=== PATIENT | male | born 1970 | race Caucasian/White ===

== ENCOUNTER 2017-02-25 11:06 | Emergency (ER) | payer SELFPAY ==
[~2017-02-25] VITALS: Ht 167.6 cm; Wt 82.5 kg
[2017-02-25 13:33] VITALS: BP 140/64
== END 2017-02-25 13:33 | disposition home or self-care (01) ==
LOC: ED 11:06
DX: M54.5 Low back pain (principal)
CPT/HCPCS: J1885